=== PATIENT | male | born 1970 | race Caucasian/White ===

== ENCOUNTER 2016-10-29 22:04 | Emergency (ER) ==
[2016-10-29 22:39] LABS: MANUAL DIFF NEEDED? NO
[2016-10-29 22:39] LABS: URINE MICRO REVIEW NEEDED? NO; URINE SOURCE CLEAN CATCH
[2016-10-29 22:40] LABS: BASO% 0.3 % (0.0-0.8); EOS# 0.14 X1000 (0.0-0.7); EOS% 1.5 % (0.0-10.0); HEMATOCRIT 42.9 % (42.0-52.0); HEMOGLOBIN 15.3 g/dL (14.0-18.0); IMM GRAN# 0.03 X1000 (0.0-0.04); IMM GRAN% 0.3 % (0.0-0.5); LYMPH# 1.82 X1000 (1.2-3.4); LYMPH% 18.9 % (20.5-51.1); MCH 32.1 PG (27-31); MCHC 35.7 g/dL (33-37); MCV 89.9 FL (81-99); MONO# 0.46 X1000 (0.11-0.59); MONO% 4.8 % (1.7-9.3); MPV 10.8 FL (7.4-10.4); NEUT% 74.2 % (42.2-75.2); PLT 194 X1000 (130-400); RBC 4.77 XMIL (4.7-6.1)
[2016-10-29 22:42] LABS: BILIRUBIN URINE NEGATIVE (NEGATIVE); BLOOD URINE NEGATIVE (NEGATIVE); COLOR YELLOW; GLUCOSE URINE NEGATIVE (NEGATIVE); LEUKOCYTES URINE NEGATIVE (NEGATIVE); NITRITE URINE NEGATIVE (NEGATIVE); PH URINE 7.5; PROTEIN URINE TRACE mg/dL (NEGATIVE); TURBIDITY URINE TURBID (CLEAR); UROBILINOGEN URINE NORMAL (NORMAL)
[2016-10-29 22:43] LABS: UR EPITHELIAL CELLS <10 /HPF (<10); URINE BACTERIA 2+ /HPF; URINE CULTURE NEEDED? YES; URINE RBC <10 /HPF (<10); URINE WBC <10 /HPF (<10)
[2016-10-29 22:52] LABS: AGAP 13; ALBUMIN 4.4 g/dL (3.5-5.0); ALKALINE PHOSPHATASE 66 U/L (32-122); AMYLASE 78 U/L (20-200); BUN 16 mg/dL (8-22); CALCIUM 8.4 mg/dL (8.8-10.2); CHLORIDE 102 mmol/L (98-107); COSMO 279; GOT 21 U/L (10-34); GPT 19 U/L (10-44); LIPASE 50 U/L (13-60); POTASSIUM 4.1 mmol/L (3.5-5.1); SODIUM 138 mmol/L (136-145); TCO2 23 mmol/L (25-35); TOTAL BILIRUBIN 0.54 mg/dL (0.20-1.00); TOTAL PROTEIN 7.4 g/dL (6.3-8.3)
[2016-10-29] MEDS ORDERED: ZOFRAN ODT PO ONE (23:06)
--- NOTE | 2016-10-29 23:23 | PROVIDER DOCUMENTATION ---
HPI-Abdominal Pain/GI Problem - General Chief Complaint: Abdominal Pain Stated Complaint: RT SIDE PAIN Time Seen by Provider: 10/29/16 22:24 Source: patient Allergies/Adverse Reactions: Patient Allergies Allergy/AdvReac Type Severity Reaction Status Date / Time No Known Allergies Allergy Verified 10/29/16 22:21 - History of Present Illness-ABD Nature of Presenting Problems: 45 y/o HM c/o abd. pain, vomiting x 5 hours. Pt states that he started to have mild abd. pain in R mid abdomen. States pain was steadily getting worse and was an 8/10 when he arrived at the ED; states vomited once in the WR and pain resolved to a 3/10. Pt denies any fever/chills, D/C, back pain, or urinary sxs. Pt in NAD. Pt also reports worsening L hip pain x 2 weeks; denies inability to ambulate. Review of Systems - Adult - REVIEW OF SYSTEMS - ADULT Constitutional: reports: no symptoms reported. denies: chills, fever Eyes: reports: no symptoms reported. denies: blurred vision, double vision, eye pain Ears, Nose, Mouth & Throat: reports: no symptoms reported. denies: hearing loss , nose pain Cardiovascular: reports: no symptoms reported. denies: chest pain, palpitations Respiratory: reports: no symptoms reported. denies: dyspnea on exertion, shortness of breath Gastrointestinal: reports: see HPI, abdominal pain, nausea, vomiting. denies: constipation, diarrhea Genitourinary: reports: no symptoms reported. denies: dysuria, frequency, flank pain Musculoskeletal: reports: see HPI, joint pain. denies: back pain, joint swelling Integumentary: reports: no symptoms reported. denies: nail changes, rash Neurological: reports: no symptoms reported. denies: numbness, paresthesia Psychiatric: reports: no symptoms reported Endocrine: reports: no symptoms reported. denies: cold intolerance, heat intolerance Hematologic/Lymphatic: reports: no symptoms reported. denies: easy bruising, prolonged bleeding Allergic/Immunologic: reports: no symptoms reported All Other Systems: Reviewed and Negative Past History - Adult - PAST MEDICAL HISTORY-ADULT Review of Records: reports: Nursing Assessment Review, Medications Reviewed - SOCIAL HISTORY Smoking: denies Alcohol Use Frequency: once a week Number of drinks per typical drinking period:: 3-4 drinks Living Situation: family Physical Exam-General - PHYSICAL EXAM-ADULT Initial Vital Signs Reviewed: Yes - CONSTITUTIONAL General Appearance: alert, mild distress - EYES Eyes: pink conjunctivae - HEAD, EARS, NOSE, MOUTH & THROAT HENMT: normocephalic/atraumatic, moist mucous membranes - NECK Neck: normal inspection - RESPIRATORY Respiratory: lungs clear, normal breath sounds. negative: crackles, rales, rhonchi, stridor, wheezing - CARDIOVASCULAR Cardiovascular: regular rate, rhythm. negative: bradycardia, tachycardia - GASTROINTESTINAL (ABDOMEN) Abdominal Exam: normal bowel sounds, soft, tenderness (MILD- pt had to show me where to press and didn't appear to be in pain at all. Area was mid R abdomen) . negative: distended, guarding, rigid, McBurney's point tenderness, Miller's sign - MUSCULOSKELETAL Back Exam: no CVA tenderness Extremity: normal gait, normal capillary refill. negative: abnormal NV exam - SKIN Integumentary: normal color, normal turgor, warm/dry - NEUROLOGIC Neurologic: negative: aphasia, motor weakness, sensory deficit - PSYCHIATRIC Psych/Mental Status: normal mood/affect, normal thought content, normal thought process, oriented x 3 Progress - PLAN OF CARE/RESULTS Progress/Plan/Lab Results: Laboratory Tests 10/29/16 10/29/16 10/29/16 22:25 22:25 22:31 WBC 9.62 RBC 4.77 Hgb 15.3 Hct 42.9 MCV 89.9 MCH 32.1 H MCHC 35.7 RDW Std Deviation 12.3 Plt Count 194 MPV 10.8 H Immature Gran % (Auto) 0.3 Neut % (Auto) 74.2 Lymph % (Auto) 18.9 L [place] % (Auto) 4.8 Eos % (Auto) 1.5 Baso % (Auto) 0.3 Immature Gran # (Auto) 0.03 Neut # (Auto) 7.14 H Lymph # (Auto) 1.82 [place] # (Auto) 0.46 Eos # (Auto) 0.14 Baso # (Auto) 0.03 Sodium 138 Potassium 4.1 Chloride 102 Carbon Dioxide 23 L Anion Gap 13 BUN 16 Creatinine 1.0 Estimated GFR/1.73 m2 > 60 BUN/Creatinine Ratio 16 Glucose 133 H Calculated Osmolality 279 Calcium 8.4 L Total Bilirubin 0.54 AST 21 ALT 19 Alkaline Phosphatase 66 Total Protein 7.4 Albumin 4.4 Globulin 3.0 Albumin/Globulin Ratio 1.5 Amylase 78 Lipase 50 Urine Source CLEAN CATCH Urine Color YELLOW Urine Turbidity TURBID Urine pH 7.5 Ur Specific [place] 1.020 Urine Protein TRACE A Ur Glucose (Stick) NEGATIVE Ur Ketones (Stick) NEGATIVE Urine Blood NEGATIVE Urine Nitrite NEGATIVE Urine Bilirubin NEGATIVE Urobilinogen Dipstick NORMAL Urine Leukocytes NEGATIVE Urine WBC (Auto) <10 Urine RBC (Auto) <10 U Epithel Cells (Auto) <10 Urine Bacteria (Auto) 2+ Orders Category Date Time Status NPO Diet 10/29/16 22:21 Completed FLAT/UPRIGHT ABD/1 VIEW CHEST [RAD] Stat Exams 10/29/16 23:06 Completed XRAY PELVIS W/HIP 2-3VW LT [RAD] Stat Exams 10/29/16 23:06 Completed AMYLASE [CHEM] Stat Lab 10/29/16 22:25 Completed CBC WITH ELECTRONIC DIFF [HEME] Stat Lab 10/29/16 22:25 Completed COMPREHENSIVE METABOLIC PANEL [CHEM] Stat Lab 10/29/16 22:25 Completed LIPASE [CHEM] Stat Lab 10/29/16 22:25 Completed URINALYSIS W/POSS RFLX CULT [URINALYSIS] Stat Lab 10/29/16 22:31 Completed URINE CULTURE [RM] Routine Lab 10/29/16 22:56 Completed Ibuprofen [Motrin] Med 10/30/16 00:19 Discontinued 800 mg PO NOW ONE Ondansetron Odt [Zofran Odt] Med 10/29/16 23:06 Discontinued 4 mg PO NOW ONE Vital Signs Temp Pulse Resp BP Pulse Ox 10/30/16 00:11 98.7 F 74 16 114/82 98 10/29/16 22:14 98.6 F 66 16 130/75 100 No Known Allergies Allergy (Verified 10/29/16 22:21) Meloxicam [Mobic] 15 mg PO DAILY #30 tablet 10/29/16 Promethazine [Phenergan] 25 mg PO Q6H PRN PRN #20 tablet 10/29/16 PAIN IN LEFT HIP (10/29/16) ABDOMINAL TENDERNESS, UNSPECIFIED SITE (10/29/16) UNSPECIFIED ABDOMINAL PAIN (10/29/16) NAUSEA WITH VOMITING, UNSPECIFIED (10/29/16) Discussed results and f/u with pt. - XRAY 1 XRAY Study: Chest, Abdomen XRAY Interpretation: No acute findings 2 XRAY: Left XRAY Study: Pelvis, Hip XRAY Interpretation: No fx or dislocation Departure - Departure Time of Disposition Order: 23:52 DIAGNOSIS: Abdominal pain of unknown cause, Hip pain, left Disposition: HOME 01 Certified Medical Emergency: Emergent Condition: Stable Additional Instructions: Follow up with PCP for recheck in 2-3 days for recheck. Take medications as directed. Drink plenty of fluids. ED Follow Up Instructions: You have been treated by a care provider in the Emergency Department. These instructions are being provided to you so you can have an understanding of how to care for yourself upon discharge. Upon discharge from the Emergency Department, you are responsible for making arrangements for follow-up care by a physician of your choice. Take all prescribed medications as directed. Return to the Emergency Department immediately for any new or worsening symptoms. You may call the Physician Referral phone number at [phone] to obtain a list of Physicians who are taking new patients. Prescriptions: Meloxicam [Mobic] 15 mg PO DAILY #30 tablet Promethazine [Phenergan] 25 mg PO Q6H PRN PRN #20 tablet PRN Reason: Nausea Referrals: Meg Khoury MD [Primary Care Provider] - Forms: Return to School/Parent Work Instructions: Hip Pain, Abdominal Pain, Adult, [id number] Attestation - Physician/ Mid-level Attestation Patient care was provided by Mid-level provider ([employer]/PA):: Yes Mid-level provider:: Devi Camacho Mid-level documentation review:: The Mid-level provider documentation, treatment plan and medical decision making was reviewed by the physician who agrees with all treatment and medical decision making by the MLP.
[2016-10-30 00:11] VITALS: BP 114/82
[2016-10-30] MEDS ORDERED: MOTRIN PO ONE (00:19)
--- NOTE | 2016-10-30 08:41 | Diag Imaging Result Document ---
PROCEDURE NAME: FLAT/UPRIGHT ABD/1 VIEW CHEST - 10/29/2016 FLAT AND UPRIGHT ABDOMEN: FINDINGS: There is a moderately large amount of stool throughout the ascending and transverse colon with gas seen in the descending and rectosigmoid. The small bowel and stomach are no distended. There is no evidence of organomegaly or mass. IMPRESSION: Constipation. PA CHEST: FINDINGS: Normal chest.
--- NOTE | 2016-10-30 08:45 | Diag Imaging Result Document ---
PROCEDURE NAME: XRAY PELVIS W/HIP 2-3VW LT - 10/29/2016 AP PELVIS AND LEFT HIP, THREE VIEWS: FINDINGS: There is no evidence of fracture or dislocation. The hip joint spaces are symmetrical and appear to be intact. No other acute bony abnormalities are present. IMPRESSION: No evidence of acute bony disease.
== END 2016-10-30 00:27 | disposition home or self-care (01) ==
LOC: ED 22:04
DX: R10.9 Unspecified abdominal pain (principal); M25.552 Pain in left hip; R11.2 Nausea with vomiting, unspecified; R10.819 Abdominal tenderness, unspecified site
CPT/HCPCS: 36415; 74022; 80053; 81001; 82150; 83690; 85025; 87088; 99284